=== PATIENT | female | born 1930 | race Asian ===

== ENCOUNTER 2019-10-01 12:16 | Inpatient (IN) | payer MEDICARE, MEDICAID ==
[~2019-10-01] VITALS: Ht 152.4 cm; Wt 56.2 kg
[~2019-10-01 12:16] MED LIST: ACETAMINOPHEN325 M1 ORAL; ACIDOPHILUS PROB1 MG PO; ACIDOPHILUS1 EAC7 PO; ASCORBIC ACID500 MG ORAL; ASPIR-LOW81 MG ORAL; ATORVASTATIN CA20 MG ORAL; CALCIUM 500 +1 EAC3 PO; CELEBREX100 MG ORAL; CELEBREX200 MG ORAL; DAILY VITAMIN1 EAC4 ORAL; FOSAMAX70 MG ORAL; LIPITOR10 MG ORAL; LISINOPRIL5 MG ORAL; MULTIVITAMINS1 EA14 PO; OYSTER SHELL C1 EA15 PO; PROMETHAZI6.25 MG/1 ORAL; VITAMIN C500 M1 ORAL; ZESTRIL10 M1 ORAL
--- NOTE | 2019-10-01 12:20 | NUR ---
ED Nurse Note: Pt. was BIBA from [facility]. Living d/t diahrrea and general weakness for 2 days. Pt opens eyes to painful stimuli. On 3L O2 via NC per EMT. Pt placed on hospital gown, cont. panel monitor, and cont. pulse ox. Pt saturating 100% on O2 2L via NC. Rectal temp taken 99.2. No wounds noted.
--- NOTE | 2019-10-01 12:30 | NUR ---
ED Nurse Note: IV established on right wrist, blood collected and sent down to lab. IV fluids started; infusing well.
[2019-10-01] MEDS ORDERED: LORATADINE10 M1 PO (12:50)
[2019-10-01] MEDS ORDERED: COLACE100 MG ORAL (12:50)
[2019-10-01] MEDS ORDERED: PANTOPRAZOLE SO40 MG ORAL (12:50)
[2019-10-01] MEDS ORDERED: DONEPEZIL HCL5 M2 ORAL (12:50)
[2019-10-01] MEDS ORDERED: VITAMIN D400 INTLU ORAL (12:50)
[2019-10-01] MEDS ORDERED: trintellix PO (12:50)
[2019-10-01] MEDS ORDERED: CLOPIDOGREL75 MG ORAL (12:50)
[2019-10-01] MEDS ORDERED: ROPINIROLE HCL0.5 MG PO (12:50)
[2019-10-01] MEDS ORDERED: NAMENDA10 MG ORAL (12:50)
[2019-10-01] MEDS ORDERED: ATIVAN1 MG ORAL (12:52)
[2019-10-01 13:06] VITALS: BP 133/63
--- NOTE | 2019-10-01 13:13 | NUR ---
ED Nurse Note: ERMD at bedside.
[2019-10-01 13:14] LABS: BASOPHILS % (AUTO) 0.2 % (0.0-2.0); HEMATOCRIT 35.1 % (37.0-47.0); LYMPHOCYTES % (AUTO) 8.8 % (20.0-45.0); MEAN CORPUSCULAR VOLUME 97 FL (80-99); MONOCYTES % (AUTO) 13.8 % (1.0-10.0); NEUTROPHILS % (AUTO) 76.2 % (45.0-75.0); PLATELET COUNT 124 K/UL (150-450); RED BLOOD COUNT 3.63 M/UL (4.20-5.40); RED CELL DISTRIBUTION WIDTH 10.7 % (11.6-14.8); WHITE BLOOD COUNT 7.2 K/UL (4.8-10.8)
[2019-10-01 13:23] LABS: ANION GAP 9 mmol/L (5-15); BLOOD UREA NITROGEN 13 mg/dL (7-18); CALCIUM 8.1 MG/DL (8.5-10.1); CARBON DIOXIDE 27 MMOL/L (21-32); CHLORIDE 103 MMOL/L (98-107); CREATININE 0.9 MG/DL (0.55-1.30); POTASSIUM 3.3 MMOL/L (3.5-5.1); SODIUM 139 MMOL/L (136-145)
--- NOTE | 2019-10-01 13:37 | NUR ---
ED Nurse Note: Urine collected via straight catheter and sent down to lab.
[2019-10-01 13:38] LABS: ALANINE AMINOTRANSFERASE 14 U/L (12-78); ALBUMIN 3.2 G/DL (3.4-5.0); ALBUMIN/GLOBULIN RATIO 0.9 (1.0-2.7); ALKALINE PHOSPHATASE 49 U/L (46-116); ASPARTATE AMINO TRANSFERASE 15 U/L (15-37); CKMB 0.6 NG/ML (0.0-3.6); CREATINE KINASE 29 U/L (26-308)
[2019-10-01 13:58] VITALS: BP 124/66
[2019-10-01 14:10] LABS: APPEARANCE,URINE CLEAR; BILIRUBIN, URINE NEGATIVE (NEGATIVE); COLOR,URINE PALE YELLOW; GLUCOSE, URINE (UA) NEGATIVE (NEGATIVE); KETONES,URINE NEGATIVE (NEGATIVE); LEUKOCYTE ESTERASE ,URINE NEGATIVE (NEGATIVE); NITRITE,URINE NEGATIVE (NEGATIVE); PH,URINE 7 (4.5-8.0); PROTEIN,URINE NEGATIVE (NEGATIVE); UROBILINOGEN,URINE NORMAL MG/DL (0.0-1.0)
--- NOTE | 2019-10-01 14:31 | Diagnostic Imaging Report ---
Indication: Dyspnea Comparison: 02/04/2012 A single view chest radiograph was obtained. Findings: No definite infiltrate or pulmonary vascular congestion identified. The heart is enlarged. The aorta is mildly enlarged consistent with atherosclerotic vascular disease. The bones are osteopenic. Impression: No acute disease
--- NOTE | 2019-10-01 14:52 | Emergency Room Report ---
History of Present Illness General Chief Complaint: Diarrhea Source: EMS, Caregiver Present Illness HPI This patient [facility] in from a [facility] facility. She has a history of high blood pressure, dementia, hyperlipidemia, low-grade lymphoma. She is brought in by her caregiver. The patient is English speaking. History is obtained by translation and through the caregiver. Apparently the patient has had recurrent episodes of diarrhea over the past few days. She is also had profound weakness and fatigue. She has had a poor appetite. There is been no nausea or vomiting. There is no fever or chills. The patient denies pain. There is been no cough or congestion. There are no other complaints. Allergies: Coded Allergies: No Known Allergies (Verified , 02/04/12) Patient History Past Medical History: see triage record, HTN, GERD, dementia, other - HLP, ? lymphoma Past Surgical History: other - L. Hip replacement Social History: Denies: smoking, alcohol use, drug use Reviewed Nursing Documentation: PMH: Agreed; PSxH: Agreed Nursing Documentation-PMH Past Medical History: No History, Except For Hx Cardiac Problems: No Hx Cancer: No Hx Gastrointestinal Problems: Yes Hx Neurological Problems: No - Lt hip replacement in 2013 Review of Systems All Other Systems: negative except mentioned in HPI Physical Exam Vital Signs Date Time Temp Pulse Resp B/P (MAP) Pulse Ox O2 Delivery O2 Flow Rate FiO2 10/01/19 12:18 98.6 78 20 98/62 (74) 96 Nasal Cannula 3.0 Sp02 EP Interpretation: reviewed, normal General Appearance: no apparent distress, alert, GCS 15, non-toxic Head: normocephalic, atraumatic Eyes: bilateral eye normal inspection, bilateral eye PERRL ENT: hearing grossly normal, normal pharynx, no angioedema, normal voice Neck: full range of motion, supple/symm/no masses Respiratory: chest non-tender, lungs clear, normal breath sounds, no respiratory distress, no retraction, no accessory muscle use, speaking full sentences Cardiovascular #1: regular rate, rhythm, no edema Gastrointestinal: normal bowel sounds, non tender, soft, non-distended, no guarding, no rebound Rectal: deferred Musculoskeletal: normal inspection, normal range of motion Neurologic: alert, responsive, motor strength/tone normal, sensory intact, speech normal, grossly normal Psychiatric: mood/affect normal, no suicidal/homicidal ideation Skin: no rash, normal color, other - See RN skin exam Medical Decision Making Diagnostic Impression: Primary Impression: Colitis Additional Impressions: Dehydration Generalized weakness ER Course This patient presents with colitis. Given the patient's age and generalized weakness and decompensation, I suspect that this patient is also dehydrated. The patient is admitted for further monitoring, IV fluids and further evaluation. Laboratory Tests Test 10/01/19 12:30 10/01/19 13:30 White Blood Count 7.2 K/UL (4.8-10.8) Red Blood Count 3.63 M/UL (4.20-5.40) L Hemoglobin 12.0 G/DL (12.0-16.0) Hematocrit 35.1 % (37.0-47.0) L Mean Corpuscular Volume 97 FL (80-99) Mean Corpuscular Hemoglobin 33.1 PG (27.0-31.0) H Mean Corpuscular Hemoglobin Concent 34.2 G/DL (32.0-36.0) Red Cell Distribution Width 10.7 % (11.6-14.8) L Platelet Count 124 K/UL (150-450) L Mean Platelet Volume 7.3 FL (6.5-10.1) Neutrophils (%) (Auto) 76.2 % (45.0-75.0) H Lymphocytes (%) (Auto) 8.8 % (20.0-45.0) L Monocytes (%) (Auto) 13.8 % (1.0-10.0) H Eosinophils (%) (Auto) 1.0 % (0.0-3.0) Basophils (%) (Auto) 0.2 % (0.0-2.0) Sodium Level 139 MMOL/L (136-145) Potassium Level 3.3 MMOL/L (3.5-5.1) L Chloride Level 103 MMOL/L (98-107) Carbon Dioxide Level 27 MMOL/L (21-32) Anion Gap 9 mmol/L (5-15) Blood Urea Nitrogen 13 mg/dL (7-18) Creatinine 0.9 MG/DL (0.55-1.30) Estimate Glomerular Filtration Rate mL/min (>60) Glucose Level 186 MG/DL (74-106) H Lactic Acid Level 1.80 mmol/L (0.4-2.0) Calcium Level 8.1 MG/DL (8.5-10.1) L Total Bilirubin 1.0 MG/DL (0.2-1.0) Aspartate Amino Transferase (AST) 15 U/L (15-37) Alanine Aminotransferase (ALT) 14 U/L (12-78) Alkaline Phosphatase 49 U/L (46-116) Total Creatine Kinase 29 U/L (26-308) Creatine Kinase MB 0.6 NG/ML (0.0-3.6) Creatine Kinase MB Relative Index 2.0 Troponin I 0.000 ng/mL (0.000-0.056) Total Protein 6.6 G/DL (6.4-8.2) Albumin 3.2 G/DL (3.4-5.0) L Globulin 3.4 g/dL Albumin/Globulin Ratio 0.9 (1.0-2.7) L Urine Color Pale yellow Urine Appearance Clear Urine pH 7 (4.5-8.0) Urine Specific [place] 1.010 (1.005-1.035) Urine Protein Negative (NEGATIVE) Urine Glucose (UA) Negative (NEGATIVE) Urine Ketones Negative (NEGATIVE) Urine Blood Negative (NEGATIVE) Urine Nitrite Negative (NEGATIVE) Urine Bilirubin Negative (NEGATIVE) Urine Urobilinogen Normal MG/DL (0.0-1.0) Urine Leukocyte Esterase Negative (NEGATIVE) EKG Diagnostic Results Rate: normal Rhythm: NSR ST Segments: no acute changes Rhythm Strip Diag. Results EP Interpretation: yes Rate: 70's Rhythm: NSR, no PVC's, no ectopy Chest X-Ray Diagnostic Results Chest X-Ray Diagnostic Results : Chest X-Ray Ordered: Yes # of Views/Limited/Complete: 1 View Indication: Other EP Interpretation: Yes Interpretation: no consolidation, no effusion, no pneumothorax, no acute cardiopulmonary disease Impression: No acute disease Electronically Signed by: Erika Arenas DO Last Vital Signs Date Time Temp Pulse Resp B/P (MAP) Pulse Ox O2 Delivery O2 Flow Rate FiO2 10/01/19 13:58 98.2 60 20 124/66 100 Room Air 2.0 Disposition: ADMITTED INPATIENT Condition: Stable Referrals: NON PHYSICIAN (PCP) Erika Arenas DO Oct 01, 2019 14:52
--- NOTE | 2019-10-01 15:27 | History and Physical ---
History of Present Illness General Date patient seen: Oct 01, 2019 Reason for Hospitalization: Diarrhea Present Illness HPI 88-year-old female English speaking was brought in from [facility] due to multiple episodes of diarrhea in the past few days. Patient is a poor historian and information is obtained from her patient has had no and chart review. Patient has been profoundly weak, fatigued, poor appetite and multiple runs of nonbloody foul-smelling diarrhea. There has not been any nausea or vomiting, no fevers or chills or abdominal pain. Per caregiver patient has had no chest pain, shortness of breath, respiratory distress, congestion, palpitations, lower extremity edema, and/or dizziness or loss of consciousness. She does not recall any sick contacts. There has been no recent travel. Patient has dementia, hypertension, hyperlipidemia, ?lymphoma, GERD. In the ER patient was found to have soft blood pressures BP 98/62, pulse 78, temperature 98.6 F, saturations 96% on 2 L nasal cannula Patient is very altered. Past Medical History: HTN, GERD, dementia, other - HLD, ? lymphoma, Osteoarthritis Past Surgical History: other - L. Hip replacement 2013 Social History: Denies: smoking, alcohol use, drug use, resides in [facility], full code Family history: Brother with cancer Allergies: Coded Allergies: No Known Allergies (Verified , 02/04/12) Medication History Scheduled Alendronate Sodium* (Fosamax*), 70 MG ORAL ONCE A WEEK, (Reported) Ascorbic Acid* (Ascorbic Acid*), 500 MG ORAL DAILY Atorvastatin Calcium* (Lipitor*), 10 MG ORAL BEDTIME Celecoxib* (Celebrex*), 100 MG ORAL TWICE A DAY, (Reported) Clopidogrel* (Clopidogrel*), 75 MG ORAL DAILY, (Reported) Docusate Sodium* (Colace*), 100 MG ORAL TWICE A DAY, (Reported) Donepezil Hcl* (Donepezil Hcl*), 5 MG ORAL DAILY, (Reported) Lisinopril (Lisinopril*), 5 MG ORAL DAILY, (Reported) Lorazepam* (Ativan*), 1 MG ORAL BID, (Reported) Memantine Hcl* (Namenda*), 10 MG ORAL DAILY, (Reported) Pantoprazole* (Pantoprazole*), 40 MG ORAL DAILY, (Reported) Ropinirole Hcl* (Ropinirole Hcl*), 0.5 MG PO TID, (Reported) Vitamin D (Vitamin D3), 5,000 UNITS ORAL DAILY, (Reported) Miscellaneous Medications Calcium Carbonate/Vitamin D3 (Calcium 500 + D Tablet), 1 EACH PO, (Reported) Lactobacillus Acidophilus (Acidophilus), 1 EACH PO, (Reported) Loratadine (Loratadine), 10 MG PO, (Reported) Multivitamin (Multivitamins), 1 EACH PO, (Reported) [trintellix], 20 MG PO, (Reported) Patient History Healthcare decision maker Resuscitation status Advanced Directive on File Review of Systems ROS Narrative Unable to obtain due to mental status Physical Exam General Appearance: WD/WN, no apparent distress, lethargic Lines, tubes and drains: peripheral HEENT: normocephalic, atraumatic, anicteric, other - Dry mucous membranes Neck: non-tender, supple, normal inspection Respiratory/Chest: lungs clear, normal breath sounds, no respiratory distress, no accessory muscle use Cardiovascular/Chest: normal rate, regular rhythm, no gallop/murmur, no JVD Abdomen: soft, no mass, hyperactive bowel sounds, tender - Patient grimaces with deep palpation Extremities: no edema Skin Exam: normal pigmentation, warm/dry Neurologic: other - Patient is altered, unable to assess for neuro exa openm, moves all extremities Musculoskeletal: normal muscle bulk Last 24 Hour Vital Signs Date Time Temp Pulse Resp B/P (MAP) Pulse Ox O2 Delivery O2 Flow Rate FiO2 10/01/19 13:58 98.2 60 20 124/66 100 Room Air 2.0 10/01/19 13:06 99.2 69 20 133/63 100 Nasal Cannula 2.0 10/01/19 12:18 98.6 78 20 98/62 (74) 96 Nasal Cannula 3.0 Laboratory Tests Test 10/01/19 12:30 10/01/19 13:30 White Blood Count 7.2 K/UL (4.8-10.8) Red Blood Count 3.63 M/UL (4.20-5.40) L Hemoglobin 12.0 G/DL (12.0-16.0) Hematocrit 35.1 % (37.0-47.0) L Mean Corpuscular Volume 97 FL (80-99) Mean Corpuscular Hemoglobin 33.1 PG (27.0-31.0) H Mean Corpuscular Hemoglobin Concent 34.2 G/DL (32.0-36.0) Red Cell Distribution Width 10.7 % (11.6-14.8) L Platelet Count 124 K/UL (150-450) L Mean Platelet Volume 7.3 FL (6.5-10.1) Neutrophils (%) (Auto) 76.2 % (45.0-75.0) H Lymphocytes (%) (Auto) 8.8 % (20.0-45.0) L Monocytes (%) (Auto) 13.8 % (1.0-10.0) H Eosinophils (%) (Auto) 1.0 % (0.0-3.0) Basophils (%) (Auto) 0.2 % (0.0-2.0) Sodium Level 139 MMOL/L (136-145) Potassium Level 3.3 MMOL/L (3.5-5.1) L Chloride Level 103 MMOL/L (98-107) Carbon Dioxide Level 27 MMOL/L (21-32) Anion Gap 9 mmol/L (5-15) Blood Urea Nitrogen 13 mg/dL (7-18) Creatinine 0.9 MG/DL (0.55-1.30) Estimat Glomerular Filtration Rate mL/min (>60) Glucose Level 186 MG/DL (74-106) H Lactic Acid Level 1.80 mmol/L (0.4-2.0) Calcium Level 8.1 MG/DL (8.5-10.1) L Total Bilirubin 1.0 MG/DL (0.2-1.0) Aspartate Amino Transf (AST/SGOT) 15 U/L (15-37) Alanine Aminotransferase (ALT/SGPT) 14 U/L (12-78) Alkaline Phosphatase 49 U/L (46-116) Total Creatine Kinase 29 U/L (26-308) Creatine Kinase MB 0.6 NG/ML (0.0-3.6) Creatine Kinase MB Relative Index 2.0 Troponin I 0.000 ng/mL (0.000-0.056) Total Protein 6.6 G/DL (6.4-8.2) Albumin 3.2 G/DL (3.4-5.0) L Globulin 3.4 g/dL Albumin/Globulin Ratio 0.9 (1.0-2.7) L Urine Color Pale yellow Urine Appearance Clear Urine pH 7 (4.5-8.0) Urine Specific [employer] 1.010 (1.005-1.035) Urine Protein Negative (NEGATIVE) Urine Glucose (UA) Negative (NEGATIVE) Urine Ketones Negative (NEGATIVE) Urine Blood Negative (NEGATIVE) Urine Nitrite Negative (NEGATIVE) Urine Bilirubin Negative (NEGATIVE) Urine Urobilinogen Normal MG/DL (0.0-1.0) Urine Leukocyte Esterase Negative (NEGATIVE) Height (Feet): 5 Weight (Pounds): 124 Objective Narrative wbc 12, plt 124 (chronic low), hgb 12, Na: 139, K 3.3, cl 103, co2 27, bun/cr 13 /0.9, glucose 186, ca 8.1, LFTs unremarkable except for Albumin 3.2, lactic acid 1.8, UA normal, CXR no acute disease Assessment/Plan Status: stable Assessment/Plan: 88 year old female with dementia, HTN, HLD presents with few days of diarrhea, has AMS and dehydration #AMS- Toxic metabolic #Diarrhea #Dehydration #Hypokalemia IV NS @ 75 ml/hr Replace electrolytes Check magnesium Send stool for c diff and wbc Hold off on antibiotics #Hyperglycemia Check HbA1c fsbg checks and MARTINA #HTN #HLD Hold home BP medications continue statin #Dementia -continue donepezil and memantine #Chronic Thrombocytopenia- monitor #Mild protein calorie malnutrition- Dietary consult vte ppx: scd boots gi ppx: none code status: full code, MOLST reviewed I spent 70 minutes on this encounter. >50% spent on counselling and care coordination. Case d/w with ED physician and RN Victoriano Dozier M.D. Oct 01, 2019 15:27
[2019-10-01 15:33] VITALS: BP 119/60
--- NOTE | 2019-10-01 15:33 | NUR ---
ED Nurse Note: Pt in bed, asleep. VSS at this time. Caregiver at bedside. Will continue to monitor
[2019-10-01] MEDS ORDERED: Milk of Magnesia 30ml Ud ORAL PRN (15:45)
[2019-10-01] MEDS ORDERED: Miralax 17gm pkt ORAL PRN (15:45)
--- NOTE | 2019-10-01 15:56 | NUR ---
ED Nurse Note: MRSA/VRE/CRE swabs taken, sent down to lab.
--- NOTE | 2019-10-01 16:23 | NUR ---
ED Nurse Note: Dr Dozier at bedside.
--- NOTE | 2019-10-01 16:28 | NUR ---
ED Nurse Note: Attempted to give report to KASIA Strauss; insurance underwriter was told that he will call back in 10 minutes for report.
--- NOTE | 2019-10-01 16:50 | NUR ---
ED Nurse Note: Report given to KASIA Strauss via telephone.
[2019-10-01] MEDS ORDERED: HYDROmorphone 1mg/ml Carpuject IVP PRN (17:00)
[2019-10-01] MEDS ORDERED: Albuterol/Ipratropium 3ml neb HHN PRN (17:00)
--- NOTE | 2019-10-01 17:10 | NUR ---
TRANSFER TO FLOOR: Patient transferred to [facility] room 404 as ordered, per Martha. Report given to Carlos A. Belongings given to caregiver. Daughter in law at bedside, informed of transfer.
--- NOTE | 2019-10-01 19:26 | NUR ---
HAND-OFF: Report given to KASIA Mckenzie.
[2019-10-01 20:00] VITALS: BP 155/66
--- NOTE | 2019-10-01 20:10 | NUR ---
NURSE NOTES: Patient in bed, asleep. No s/s of distress noted. Skin is warm and dry. IV site noted, iv fluid is infusing as ordered. Kept clean and comfortable. Respiration is even and unlabored. Bed in low and locked position. family is at bedside. Call light is at bedside. Will continue plan of care.
[2019-10-01] MEDS: NovoLOG Insulin Flexpen SUBQ SCH (20:52)
[2019-10-01] MEDS: Docusate 100mg cap ORAL SCH (20:52)
--- NOTE | 2019-10-01 23:48 | NUR ---
NURSE NOTES: Patient fell, no visual injury noted at this time. No discoloration. Patient yellow gown, yellow socks on. Call light at bedside. VT 152/83 NC 64 Respiration 20 o2 95, temp 98.1. Patient has slight pain on right shoulder 03/03. Primary MD called. Will call family.
--- NOTE | 2019-10-01 23:56 | NUR ---
NURSE NOTES: Family called, informed of the patient condition. Will follow up.
[2019-10-02] VITALS: BP 152/83
--- NOTE | 2019-10-02 00:30 | NUR ---
NURSE NOTES: Doctor risk consultant was called for patient, still awaiting call back. Patient is asleep. no s/s of distress at this moment.
--- NOTE | 2019-10-02 00:45 | NUR ---
NURSE NOTES: Dr. Askew gave orders, stat CT head, right shoulder Doctor will see this morning.
--- NOTE | 2019-10-02 02:14 | NUR ---
NURSE NOTES: Patient was taken down for CT head, awaiting for results.
--- NOTE | 2019-10-02 02:25 | Diagnostic Imaging Report ---
EXAM: CT Head Without Intravenous Contrast CLINICAL HISTORY: FALL TECHNIQUE: Axial computed tomography images of the head brain without intravenous contrast. CTDI is 63 mGy and DLP is 1458 mGy-cm. One or more of the following dose reduction techniques were used: automated exposure control, adjustment of the mA and or kV according to patient size, use of iterative reconstruction technique. COMPARISON: [address] head FINDINGS: Brain: No hemorrhage, herniation, or mass effect. Chronic microvascular ischemic changes. Old right basal ganglia infarct. Ventricles: No hydrocephalus. Age related cerebral volume loss. Bones joints: Unremarkable. Soft tissues: Unremarkable. Sinuses: Mild mucosal thickening of the right maxillary and left ethmoid sinus. Mastoid air cells: Clear. IMPRESSION: No acute hemorrhage, hydrocephalus, or mass effect.
[2019-10-02 04:26] VITALS: BP 126/71
[2019-10-02] MEDS: NovoLOG Insulin Flexpen SUBQ SCH ×2 (06:05→11:30)
--- NOTE | 2019-10-02 07:22 | NUR ---
HAND-OFF: Report given to Darlene Maki.
--- NOTE | 2019-10-02 07:23 | NUR ---
NURSE NOTES: Received patient in bed, awake, alert and oriented x1. Patient only knows her name. Patient noted with episode of grabbing her right shoulder. Patient is s/p fall per night shift manager and landed on right side. No swelling or bruise on right shoulder area and PT able to move her right arm with mild pain. Bed alarm is on and instructed patient to use call light and demonstrated.Call light and personnel items within reach. No diarrhea, denies nausea or vomiting. Bed is in lowest position and locked. Re-orientation given to the patient but reenforcement needed. .Patient is on NPO for now. IV intact, no s/s of infiltration. IVF running, no s/s of hypoglycemia.Will continue to monitor
[2019-10-02 07:29] LABS: BASOPHILS % (AUTO) 0.7 % (0.0-2.0); EOSINOPHILS % (AUTO) 2.3 % (0.0-3.0); HEMATOCRIT 32.9 % (37.0-47.0); HEMOGLOBIN 11.6 G/DL (12.0-16.0); LYMPHOCYTES % (AUTO) 18.3 % (20.0-45.0); MEAN CORPUSCULAR VOLUME 95 FL (80-99); MONOCYTES % (AUTO) 15.8 % (1.0-10.0); NEUTROPHILS % (AUTO) 62.8 % (45.0-75.0); PLATELET COUNT 126 K/UL (150-450); RED BLOOD COUNT 3.44 M/UL (4.20-5.40); RED CELL DISTRIBUTION WIDTH 10.9 % (11.6-14.8); WHITE BLOOD COUNT 4.8 K/UL (4.8-10.8)
[2019-10-02 07:32] LABS: ANION GAP 9 mmol/L (5-15); BLOOD UREA NITROGEN 8 mg/dL (7-18); CARBON DIOXIDE 25 MMOL/L (21-32); CHLORIDE 111 MMOL/L (98-107); CREATININE 0.7 MG/DL (0.55-1.30); POTASSIUM 3.4 MMOL/L (3.5-5.1); SODIUM 145 MMOL/L (136-145)
[2019-10-02 08:00] VITALS: BP 120/72
--- NOTE | 2019-10-02 08:11 | NUR ---
NURSE NOTES: Patient's private behavioral health care coordinator @ bedside.
[2019-10-02] MEDS: Docusate 100mg cap ORAL SCH (08:58)
[2019-10-02] MEDS ORDERED: Vitamin D 1000 IU Tab ORAL SCH (09:00)
[2019-10-02] MEDS ORDERED: Donepezil 5mg Tab ORAL SCH (09:00)
[2019-10-02] MEDS ORDERED: Memantine 10mg tab ORAL SCH (09:00)
[2019-10-02] MEDS ORDERED: Ascorbic Acid 500mg tab ORAL SCH (09:00)
--- NOTE | 2019-10-02 09:30 | NUR ---
NURSE NOTES: Patient's daughter in law @ the bedside.
--- NOTE | 2019-10-02 10:00 | NUR ---
NURSE NOTES: RN notified to Dr. Rondon of potassium of 3.4 and right shoulder pain. Received new order to do right shoulder x-ray and Dr. Rondon will be in one hour to see the patient.
--- NOTE | 2019-10-02 11:00 | NUR ---
NURSE NOTES: Daughter in law, Priya Bass @ the bedside and she wants her mother in law to be discharged to assisted living. She says " I am worried that she is in new environment and she might get more confused if she stays over night." RN suggested her to wait for the doctor. She will wait for patient's doctor. Dr. Rondon who covers for Dr. Thomas.
--- NOTE | 2019-10-02 11:00 | Diagnostic Imaging Report ---
EXAM: XR Right Shoulder Complete, 2 or More Views CLINICAL HISTORY: PAIN TECHNIQUE: Two or more views of the right shoulder. COMPARISON: No relevant prior studies available. FINDINGS: Bones joints: There is a small osteophyte superior aspect of the distal clavicle. Joint spaces are maintained. Normal bony matrix. No acute fracture. No dislocation. Soft tissues: Unremarkable. IMPRESSION: 1. No acute fracture or malalignment. 2. There is a small osteophyte superior aspect of the distal clavicle.
[2019-10-02 12:00] VITALS: BP 133/72
--- NOTE | 2019-10-02 12:44 | Discharge Instructions ---
Discharge Instructions Discharge Instructions Services at Discharge: other Diet: 2 GM sodium (low sodium) Resume Normal Activity?: Yes Activity: resume normal activities For Congestive Heart Failure Reminder Report to your physician any weight gain of 5 pounds or more in one week. Tony Rondon MD Oct 02, 2019 12:44
--- NOTE | 2019-10-02 12:46 | Discharge Summary ---
Discharge Summary Hospital Course Date of Admission Oct 01, 2019 at 14:59 Date of Discharge 10/02/19 Admitting Diagnosis COLITIS, DEHYDRATION HPI Kolby Cash is a 88 year old female who was admitted on Oct 01, 2019 at 14:59 for Colitis,Dehydration Consultations none Procedures none Hospital Course She was brought in from [facility] due to multiple episodes of diarrhea in the past few days. Patient is a poor historian and information is obtained from her patient has had no and chart review. Patient has been profoundly weak, fatigued, poor appetite and multiple runs of nonbloody foul- smelling diarrhea. There has not been any nausea or vomiting, no fevers or chills or abdominal pain. Per caregiver patient has had no chest pain, shortness of breath, respiratory distress, congestion, palpitations, lower extremity edema, and/or dizziness or loss of consciousness. She does not recall any sick contacts. There has been no recent travel. Patient has dementia, hypertension, hyperlipidemia, GERD. The patient was supported with IVF and monitored. Her vital signs and all laboratory test are within normal limits. Her stool is formed and noted to have mucus today. No acute diarrhea is noted. Per discussion with the patient daughter it was noted that the patient fell overnight most likely due to confusion - delirium due to new physical setting. X ray of the R shoulder was done without any evidence of fracture. After discussion with the daughter of the patient it was decided to discharge the patient back to [facility] where she has caregiver and she can be monitored for further changes. Currently, no data to support further need of hospitalization. Stool studies are pending and will update [facility] if any postive test is reported. Discharge Medications Continued Medications: Alendronate Sodium* (Fosamax*) 70 Mg Tablet 70 MG ORAL ONCE A WEEK, TAB Ascorbic Acid* (Ascorbic Acid*) 500 Mg Tab 500 MG ORAL DAILY, #30 TAB Atorvastatin Calcium* (Lipitor*) 10 Mg Tab 10 MG ORAL BEDTIME, #30 TAB Calcium Carbonate/Vitamin D3 (Calcium 500 + D Tablet) 1 Each Tablet 1 EACH PO, TAB Celecoxib* (Celebrex*) 100 Mg Capsule 100 MG ORAL TWICE A DAY, CAP Clopidogrel* (Clopidogrel*) 75 Mg Tablet 75 MG ORAL DAILY for blood thinner, TAB Docusate Sodium* (Colace*) 100 Mg Capsule 100 MG ORAL TWICE A DAY for stool softner, CAP Donepezil Hcl* (Donepezil Hcl*) 5 Mg Tab.rapdis 5 MG ORAL DAILY for dementia, TAB Lactobacillus Acidophilus (Acidophilus) 1 Each Tablet 1 EACH PO, TAB Lisinopril (Lisinopril*) 5 Mg Tablet 5 MG ORAL DAILY, TAB Loratadine (Loratadine) 10 Mg Tab.rapdis 10 MG PO for allergy, TAB Lorazepam* (Ativan*) 1 Mg Tablet 1 MG ORAL BID for anxiety, TAB Memantine Hcl* (Namenda*) 10 Mg Tablet 10 MG ORAL DAILY for dementia, TAB Multivitamin (Multivitamins) 1 Each Tablet 1 EACH PO, TAB Pantoprazole* (Pantoprazole*) 40 Mg Tablet.dr 40 MG ORAL DAILY for acid reduser, TAB Ropinirole Hcl* (Ropinirole Hcl*) 0.5 Mg Tablet 0.5 MG PO TID, TAB [trintellix] () 20 MG PO Vitamin D (Vitamin D3) 400 Unit Tablet 5000 UNITS ORAL DAILY, TAB Discharge Condition Upon Discharge: stable Discharge Disposition Patient was discharged to [facility] Discharge Diagnoses: (1) Dehydration (2) Generalized weakness Discharge Instructions Discharge Instructions Services Upon Discharge: other Activity: resume normal activities Tony Rondon MD Oct 02, 2019 12:46
--- NOTE | 2019-10-02 13:20 | NUR ---
NURSE NOTES: Patient was seen by Dr. Rondon and he cleared the patient for discharge. Dr. Rondon reviewed x-ray result and patient had from brownish bowel movement with mucus. Dr. Rondon checked the stool.
--- NOTE | 2019-10-02 14:05 | NUR ---
NURSE NOTES: Patient was discharged back to [facility] assisted living in stable condition accompanied by patient's daughter in law in her private car. Staff assited patient to the car. Prior to discharge, patient was stable with stable V/S. Not in respiratory/cardiac distress. No s/s of hypoglycemia. Skin intact, no pressure sore or redness on pressure points. IV and ID were removed. No s/s of infection IV removal site. No belongings. Discharge instruction given to patient's daughter in law and RN sent the stool to lab.
[2019-10-02] MEDS ORDERED: NS 275ml ONE (14:57)
--- NOTE | 2019-10-02 15:17 | NUR ---
PT Note PT hector completed, tx initiated. Patient c/o right shoulder pain with ROM and during gait training. She has muscle weakness and decreased balance, making her at a high risk for further falls. Patient needs PT to increase muscle strength and balance to improve her functional mobility and gait. Recommend X-ray to the right shoulder. Addendum: 10/02/19 at 1517 by TONY LUCAS PT Amended: Links added.
--- NOTE | 2019-10-02 15:21 | Cardiology Report ---
APPROVED REPORT EKG Measurement Heart [id number] Normal sinus rhythm Normal ECG
== END 2019-10-02 14:58 | disposition home or self-care (01) | DRG 640 ==
LOC: EDBD 12:16 → EDUNIT# 12:16 → EMR 12:55 → 4E 14:59 → EDBEDREQ 16:01 → 4E 23:58
DX: E86.0 Dehydration (principal); G92 Toxic encephalopathy; E44.1 Mild protein-calorie malnutrition; R19.7 Diarrhea, unspecified; I10 Essential (primary) hypertension; K21.9 Gastro-esophageal reflux disease without esophagitis; F03.90 Unspecified dementia, unspecified severity, without behavioral disturbance, psychotic disturbance, mood disturbance, and anxiety; E78.5 Hyperlipidemia, unspecified; E87.6 Hypokalemia; R73.9 Hyperglycemia, unspecified; D69.6 Thrombocytopenia, unspecified; R53.1 Weakness
CPT/HCPCS: 36415; 70450; 71045; 80048; 80053; 81003; 82550; 82553; 82962; 83036; 83605; 84484; 85025; 87040; 87081; 87324; 93005; 96360; 99285; J1815